=== PATIENT | female | born 1960 | race Caucasian/White ===

== ENCOUNTER 2022-06-29 07:52 | Day surgery (SDC) | payer BC, SELFPAY ==
[2022-06-29] VITALS (7 sets, daily range): BP systolic 129–175; BP diastolic 67–87; PULSE 61–87; RESP 16; TEMP 36.7; O2SAT 95–100; BMI 20.7
--- NOTE | 2022-06-29 10:01 | P.ORPRC_ITS ---
Procedure Note Date of procedure: 06/29/22 Procedure: SURGEON: Josh Meyer MD [employer]: Kay Malone PA-C. PREOPERATIVE DIAGNOSIS: Right hand, index finger retained foreign body POSTOPERATIVE DIAGNOSIS: Right hand, index finger retained foreign body NAME OF OPERATION: Foreign body removal, deep and complicated ANESTHESIA: Local ESTIMATED BLOOD LOSS: 0 mL COMPLICATIONS: None SPECIMENS: None DRAINS: None PREOPERATIVE ANTIBIOTICS: None INDICATIONS: The patient is a 83-tfkt-wcq-year-old who impaled there right hand index finger on a sewing machine needle. Foreign body removal was recommended. The risks, benefits and expected outcomes were discussed in detail. These included but were not limited to: Infection, bleeding, injury to blood vessel or nerve, venous thromboembolism. All questions were answered to their satisfaction. PROCEDURE: The patient was placed supine on the operating room table. The right upper extremity was prepped and draped in the usual sterile fashion. Local anesthesia was established with 0.5% Marcaine, without epinephrine, as a digital block. The tourni-cot was used. The area where the needle entered was explored with the mosquito. A tiny corner of the nail plate was resected with the rongeur. Blunt dissection was carried down through the soft tissues with the mosquito and tenotomy scissors. We were able to see the tip of the needle. With some dorsal pressure on the volar pulp of the finger with the Adson forceps, we were able to back the needle out 1 or 2 mm and then grasp it with the mosquito and remove it intact. The needle measured 15 mm in length. The wound was irrigated with normal saline. The Tourni-cot was released The wound was irrigated with normal saline. A dry dressing was applied. Sponge and needle counts were correct x2. The patient tolerated the procedure well. There were no apparent complications. They were carefully transferred to the hospital bed and taken to the postanesthesia care unit in satisfactory condition. PLAN: The patient will be discharged to home. Use of the hand as tolerates. They will follow up in the office in 2 weeks for wound check and 3 views of the right hand, index finger prior to being seen.
== END 2022-06-29 10:35 | disposition home or self-care (01) ==
PROVIDERS: PCP Family Medicine; Visit Provider Orthopaedic Surgery
PROC: (CPT 20520; principal; 2022-06-29 09:30)
DX: S61.240A Puncture wound with foreign body of right index finger without damage to nail, initial encounter (principal); W45.8XXA Other foreign body or object entering through skin, initial encounter; Y93.D2 Activity, sewing
CPT/HCPCS: 20520

== ENCOUNTER 2022-07-20 15:30 | Outpatient (CLI) | payer BC, SELFPAY ==
[2022-07-20 14:36] LABS: Chloride* 103 mmol/L (96-114); Sodium* 139 mmol/L (135-149)
[2022-07-20 14:39] LABS: Blood Urea Nitrogen* 17 mg/dL (7-30); Carbon Dioxide* 31 mmol/L (20-32); Cholesterol* 225 mg/dL (90-199); Creatinine* 0.8 mg/dL (0.5-1.5); Estimated Glomerular Filt Rate 84 ml/min
[2022-07-20 14:40] LABS: Calcium* 9.3 mg/dL (8.4-10.6); Glucose* 90 mg/dL (60-115); HDL Cholesterol* 68 mg/dL (>=50); LDL Cholesterol Calculated 134 mg/dL (<100); Triglycerides* 115 mg/dL (40-149)
[2022-07-20 15:51] LABS: Vitamin D 25 Hydroxy* 42 ng/mL (30-80)
== END 2022-07-20 15:31 | disposition home or self-care (01) ==
PROVIDERS: PCP Family Medicine; Visit Provider Emergency Medicine
DX: M81.0 Age-related osteoporosis without current pathological fracture (principal); E78.5 Hyperlipidemia, unspecified
CPT/HCPCS: 80048; 80061; 82306

== ENCOUNTER 2023-05-24 11:28 | Outpatient (CLI) | payer BC, SELFPAY | END 2023-05-24 11:29 | disposition home or self-care (01) | LOC: FRMREF 11:29 | PROVIDERS: PCP Family Medicine; Visit Provider Registered Nurse | DX: N94.9 Unspecified condition associated with female genital organs and menstrual cycle (principal) | CPT/HCPCS: 87086 ==

== ENCOUNTER 2023-09-11 08:31 | Outpatient (CLI) | payer BC, SELFPAY | END 2023-09-11 08:32 | disposition home or self-care (01) | LOC: NFLDREF 09-12 12:52 | PROVIDERS: PCP Family Medicine; Referring Provider Family Medicine; Visit Provider Family Medicine | DX: E78.5 Hyperlipidemia, unspecified (principal) | CPT/HCPCS: 80053; 80061 ==

== ENCOUNTER 2023-09-14 09:30 | Outpatient (CLI) | payer BC, SELFPAY | END 2023-09-14 09:31 | disposition home or self-care (01) | PROVIDERS: PCP Family Medicine; Visit Provider Family Medicine | DX: Z86.39 Personal history of other endocrine, nutritional and metabolic disease (principal) | CPT/HCPCS: 84443 ==

== ENCOUNTER 2023-09-20 10:33 | Outpatient (CLI) | payer BC, SELFPAY ==
--- NOTE | 2023-09-20 10:45 | CRLHL7_ITS ---
For Patients: As a result of the Century Cures Act, medical imaging exams and procedure reports are released immediately into your electronic medical record. You may view this report before your referring provider. If you have questions, please contact your health care provider. INDICATION: PERSONAL HISTORY OF ENDOCRINE COMPARISON: none TECHNIQUE: Gottlieb scale and color Doppler images were acquired of the thyroid gland. FINDINGS: The thyroid gland demonstrates heterogeneous echogenicity and has a lobular outer contour. The right lobe measures 4.3 x 1.2 x 2.4 cm and the left lobe measures 5.2 x 1.1 x 1.2 cm in size. The isthmus measures 2 millimeters. Solid and cystic nodule is present within the lower pole of the left thyroid lobe measuring 1.2 x 0.5 x 0.9 cm. Additional solid and cystic nodule left thyroid lobe measuring 1.2 x 0.5 x 0.9 cm. Solid and cystic nodule right thyroid lobe measures 2.1 x 0.8 x 1.6 cm. Mostly cystic nodule right thyroid lobe measures 1.4 x 0.5 x 1.0 cm. The color Doppler images demonstrate normal vascularity. There is no evidence of cervical lymphadenopathy or parathyroid mass. IMPRESSION: Bilateral TR 3 thyroid nodules, follow up 1 year recommended. Dictated by Riaz Mai MD @ 09/20/2023 1:42:52 PM (Electronically Signed)
== END 2023-09-20 10:34 | disposition home or self-care (01) ==
PROVIDERS: PCP Family Medicine; Visit Provider Family Medicine
DX: Z86.39 Personal history of other endocrine, nutritional and metabolic disease (principal); E04.1 Nontoxic single thyroid nodule
CPT/HCPCS: 76536

== ENCOUNTER 2023-11-13 12:43 | Outpatient (CLI) | payer BC, SELFPAY ==
--- NOTE | 2023-11-13 13:00 | XR_ITS ---
Patient: INDIRA QUINN Facility:?[facility] Patient ID:?[id number] Site Patient ID:?[id number]. Site :?1960 Study:?DEXA-Bone Density -11/13/2023 1:21:48 PM Ordering Physician:NARESH Final Report: DXA BONE MINERAL DENSITY STUDY Current height (in): 63.0. Weight (lb): 118.0. Menopause age: 46. Ethnicity: White. Reason for exam: Osteoporosis. 1. Have you had a previous hip or vertebral fracture? No. 2. Have you had any fractures during your adult life which did not result from significant trauma (e.g., auto accident)? Yes. 3. Did either of your parents have a hip fracture? No. 4. Do you smoke? No. 5. Have you ever taken Glucocorticoids? No. 6. Do you have rheumatoid arthritis? No. 7. Do you have secondary osteoporosis? No. 8. Do you drink 3 or more alcoholic drinks per day? No. 9. Are you being treated for osteoporosis? Yes. 10. Have you ever taken any of the following medications: Actonel, Evista, Fosamax, Miacalcin, Reclast, Boniva, Forteo, HRT (i.e. estrogen/hormone therapy), Protelos, Prolia, Vitamin D, Calcium, other ? please specify. ANSWER: Yes, Fosamax, vitamin D, calcium. 11. Do you have any of the following medical conditions: Anorexia or bulimia, asthma or emphysema, end stage renal disease, hyperparathyroidism, any seizure disorders, cancer, inflammatory bowel diseases, hysterectomy, other ? please specify. ANSWER: Yes, asthma or emphysema. 12. What was your maximum height (inches)? 63. 13. Do you perform weight bearing exercise regularly? No. 14. Do you regularly consume dairy products? No. 15. Do you drink caffeinated beverages? No. 16. At what age did your period start? 14. 17. Are you premenopausal? No. 18. How many full term pregnancies have you had? 2. 19. Have you ever missed your period for more than 6 months in a row (not including or menopause)? No. TECHNIQUE: Bone mineral density study was performed using the [employer]. FINDINGS: The results of the study expressed as bone mineral density (BMD) are as follows: Lumbar spine L1 to L4: BMD: 0.741 g/cm2. T-score: -2.5. Z-score: -1.0. Neck Left: BMD: 0.527 g/cm2. T-score: -2.9. Z-score: -1.5. Right: BMD: 0.543 g/cm2. T-score: -2.8. Z-score: -1.4. Total Left: BMD: 0.744 g/cm2. T-score: -1.6. Z-score: -0.5. Right: BMD: 0.713 g/cm2. T-score: -1.9. Z-score: -0.8. IMPRESSION: Osteoporosis. *Comparison exams done prior to 01/2020 were performed on different unit, [facility]. COMPARISON: Compared with scan of 10/26/2021, the bone mineral density has increased by 4.0 percent at the spine and increased by 3.1 percent at the hip. Riaz Mai M.D. Diagnostic Radiologist [email or web address] DSM/jean pierrew: D& Transcribed: 11:19 am DW/Dictated by: Riaz Mai MD @ 11/14/2023 8:46:00 AM Signed by:Torito Mai MD @11/14/2023 12:27:24 PM (Electronic Signature)
== END 2023-11-13 12:44 | disposition home or self-care (01) ==
LOC: RAD 12:44
PROVIDERS: PCP Family Medicine; Visit Provider Family Medicine
DX: M81.0 Age-related osteoporosis without current pathological fracture (principal)
CPT/HCPCS: 77080

== ENCOUNTER 2024-09-12 13:27 | Outpatient (CLI) | payer BC, SELFPAY | END 2024-09-12 13:28 | disposition home or self-care (01) | LOC: NFLDREF 09-15 04:08 | PROVIDERS: PCP Family Medicine; Referring Provider Family Medicine; Visit Provider Physician Assistant | DX: N39.0 Urinary tract infection, site not specified (principal); R31.9 Hematuria, unspecified; B96.20 Unspecified Escherichia coli [E. coli] as the cause of diseases classified elsewhere | CPT/HCPCS: 87086 ==

== ENCOUNTER 2024-09-15 08:03 | Outpatient (CLI) | payer BC, SELFPAY | END 2024-09-15 08:04 | disposition home or self-care (01) | LOC: NFLDREF 09-17 00:48 | PROVIDERS: PCP Family Medicine; Referring Provider Family Medicine; Visit Provider Emergency Medicine | DX: E78.5 Hyperlipidemia, unspecified (principal); E55.9 Vitamin D deficiency, unspecified; M81.0 Age-related osteoporosis without current pathological fracture | CPT/HCPCS: 80048; 80061; 82306 ==

== ENCOUNTER 2025-04-09 07:12 | Outpatient (CLI) | payer BC, SELFPAY | END 2025-04-09 07:13 | disposition home or self-care (01) | LOC: NFLDREF 04-11 22:51 | PROVIDERS: PCP Family Medicine; Referring Provider Family Medicine; Visit Provider Nurse Practitioner Family | DX: N30.01 Acute cystitis with hematuria (principal); B96.20 Unspecified Escherichia coli [E. coli] as the cause of diseases classified elsewhere | CPT/HCPCS: 87086 ==

== ENCOUNTER 2025-04-17 13:50 | Outpatient (CLI) | payer BC, SELFPAY ==
[2025-04-17 18:48] LABS: Bacterial Vaginosis* Negative (Negative); Candida glab/krus NOT DETECTED (No Detected)
== END 2025-04-17 13:51 | disposition home or self-care (01) ==
PROVIDERS: PCP Family Medicine; Visit Provider Registered Nurse
DX: N89.8 Other specified noninflammatory disorders of vagina (principal); Z87.440 Personal history of urinary (tract) infections
CPT/HCPCS: 81513; 87086; 87481; 87661

== ENCOUNTER 2025-05-14 14:08 | Outpatient (CLI) | payer BC, SELFPAY ==
--- NOTE | 2025-05-14 14:30 | MR_ITS ---
[address] [address] Phone:?[phone] Fax:?[phone] Referring Physician Information: Josh Meyer M.D. [address] [facility] [address] Phone:?[phone] Fax:?[phone] Patient:?Debbie Judd D.O.B:?1960 Sex:?Female Phone:?[phone] [facility] MRN:?[id number] Exam Date:?05/14/2025 EXAM: MRI of the RIGHT 1ST FINGER, without contrast CLINICAL INFORMATION: Female, 65 years old, with radial sided soft tissue mass of the right thumb. INDICATION: Evaluate soft tissue mass. PRIOR SURGERY: None reported. PLAIN FILMS: Radiographs dated 05/11/2025. COMPARISONS: No prior MRIs available. TECHNICAL INFORMATION: Using a 1.5T MR scanner and a localizing surface coil: sagittals: PD, T2 coronals: PD, T1, T2, STIR axials: PD, T2, PDFS SEDATION: None. CONTRAST: None. FINDINGS: Bones: Unremarkable, without stress/occult fracture, marrow edema or mass. Joints: Intact throughout without pathologic narrowing or effusion. Soft tissues: An ovoid soft tissue mass is present in the volar/radial aspect of the 1st digit at the level of the proximal phalanx, abutting the flexor tendon and measuring 7 x 5 x 10 mm (sagittal PD series 9 image 7 and axial PDFS series 5 image 9). This lesion demonstrates marked T2 hyperintense signal with low- intermediate T1 and heterogeneous STIR signal low-intermediate. This is associated with mild/moderate generalized soft tissue swelling throughout the 1st distal phalanx. Tendons: Flexor and extensor tendons are intact, without rupture or tendinopathy, tenosynovitis or longitudinal splitting. Collateral ligaments: Collateral ligamentous structures are intact. IMPRESSION: 1. Ovoid soft tissue mass in the radial/volar aspect of the thumb at the level of the distal phalangeal base, abutting the flexor tendon. 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 2. No fracture or osseous stress reaction. 3. No flexor/extensor tendinopathy or tear. 4. No ligamentous sprain/tear. BC Electronically signed on 05/15/2025 7:08:00 AM by Elmo Maddox M.D.
== END 2025-05-14 14:09 | disposition home or self-care (01) ==
LOC: MRI 14:10
PROVIDERS: PCP Family Medicine; Visit Provider Orthopaedic Surgery
DX: R22.31 Localized swelling, mass and lump, right upper limb (principal)
CPT/HCPCS: 73218